=== PATIENT | female | born 1980 | race Hispanic/Latino ===

== ENCOUNTER 2023-02-01 13:43 | Inpatient (IN) | payer MEDICAID, SELFPAY ==
[2023-02-01] MEDS: Betamet Acet/Betamet Na Ph 30 MG/5 ML VIAL ONE (15:14)
[2023-02-01] MEDS ORDERED: Tranexamic Acid 1,000 MG/10 ML VIAL IVP PRN (18:16)
[2023-02-01] MEDS ORDERED: Misoprostol 200 MCG TAB PR PRN (18:16)
[2023-02-01] MEDS ORDERED: Acetaminophen 500 MG TAB PO PRN (18:16)
[2023-02-01] MEDS ORDERED: Promethazine HCl 25 MG/ML VIAL IM PRN (18:16)
[2023-02-01] MEDS ORDERED: Methylergonovine 0.2 MG/ML VIAL IM PRN (18:16)
[2023-02-01] MEDS ORDERED: Carboprost 250 MCG/ML AMP IM PRN (18:16)
[2023-02-01] MEDS ORDERED: hydrALAZINE 20 MG/ML VIAL SLOW IVP PRN (18:16)
[2023-02-01] MEDS ORDERED: Diphenoxylate HCl/Atropine Tablet PO PRN (18:16)
[2023-02-01] MEDS ORDERED: Ondansetron PF 4 MG/2 ML Vial IVP PRN (18:16)
[2023-02-01] MEDS ORDERED: Oxytocin 30 units/NS 500 ML 500 ML IV SCH (18:30)
[2023-02-01 19:09] VITALS: BMI 35.2
[2023-02-01 22:54] LABS: Hematocrit 37.8 % (34.9-44.5); Hemoglobin 12.8 g/dL (12.0-15.5); Mean Corpuscular HGB CONC 33.9 g/dL (32.0-36.0); Mean Corpuscular Hemoglobin 30.2 pg (27.0-33.0); Mean Corpuscular Volume 89.2 fl (81.6-98.3); Mean Platelet Volume 9.9 fl (7.4-10.4); Platelet Count 291 10x3/uL (150-450); RBC Distribution Width 15.4 % (11.5-14.5); Red Blood Cell (RBC) Count 4.24 10x6/uL (3.90-5.03); White Blood Cell (WBC) Count 9.7 10x3/uL (3.5-10.5)
[2023-02-02 02:17] LABS: HBSAg Index 0.16 S/CO (0-0.99); Hep B Surf Ag - L&D Non-Reactive S/CO (NonReactive); Syphilis Antibody Nonreactive (Nonreactive); Syphilis Antibody Index 0.07 S/CO (<1.00 Non-Reactive)
[2023-02-02] MEDS: Betamet Acet/Betamet Na Ph 30 MG/5 ML VIAL ONE (19:05)
[2023-02-03] MEDS ORDERED: Glucagon 1 MG/ML KIT IM PRN (10:35)
[2023-02-03] MEDS ORDERED: HumaLOG 300 UNITS/3 ML VIAL SC PRN ×2 (10:35→22:15)
[2023-02-03] MEDS ORDERED: Dextrose 5% in Water 1,000 ML IV PRN (10:35)
[2023-02-03] MEDS ORDERED: Dextrose 50% Abboject 50 ML SYRINGE SLOW IVP PRN (10:35)
[2023-02-03] MEDS ORDERED: HumaLOG 300 UNITS/3 ML VIAL SC SCH (10:45)
[2023-02-03] MEDS: Lactated Ringer's 1,000 ML IV SCH (17:26)
[2023-02-04] MEDS: Lactated Ringer's 1,000 ML IV SCH ×3 (08:06→13:12)
[2023-02-06 04:57] LABS: Hematocrit 37.2 % (34.9-44.5); Hemoglobin 12.8 g/dL (12.0-15.5); Mean Corpuscular HGB CONC 34.4 g/dL (32.0-36.0); Mean Corpuscular Hemoglobin 31.1 pg (27.0-33.0); Mean Corpuscular Volume 90.3 fl (81.6-98.3); Mean Platelet Volume 10.3 fl (7.4-10.4); Platelet Count 288 10x3/uL (150-450); RBC Distribution Width 15.7 % (11.5-14.5); Red Blood Cell (RBC) Count 4.12 10x6/uL (3.90-5.03); White Blood Cell (WBC) Count 8.6 10x3/uL (3.5-10.5)
[2023-02-07] MEDS: Milk Of Magnesia 30 ML UDCUP PO SCH (21:00)
[2023-02-08] MEDS: Lactated Ringer's 1,000 ML IV SCH ×4 (00:02→19:18)
[2023-02-08] MEDS ORDERED: Milk Of Magnesia 30 ML UDCUP PO SCH (09:45)
[2023-02-08 18:32] LABS: Hematocrit 41.5 % (34.9-44.5); Hemoglobin 13.8 g/dL (12.0-15.5); Mean Corpuscular HGB CONC 33.3 g/dL (32.0-36.0); Mean Corpuscular Hemoglobin 30.4 pg (27.0-33.0); Mean Corpuscular Volume 91.4 fl (81.6-98.3); Mean Platelet Volume 10.1 fl (7.4-10.4); Platelet Count 309 10x3/uL (150-450); RBC Distribution Width 16.1 % (11.5-14.5); Red Blood Cell (RBC) Count 4.54 10x6/uL (3.90-5.03); White Blood Cell (WBC) Count 10.2 10x3/uL (3.5-10.5)
[2023-02-08] MEDS: Milk Of Magnesia 30 ML UDCUP PO SCH (20:11)
[2023-02-09] MEDS ORDERED: Azithromycin 500 MG VIAL ONE (07:11)
[2023-02-09] MEDS ORDERED: CEFAZOLIN 2 GM VIAL ONE (07:11)
[2023-02-09] MEDS ORDERED: Milk Of Magnesia 30 ML UDCUP PO SCH (09:00)
[2023-02-09] MEDS ORDERED: Morphine PF 10 MG/10 ML VIAL ONE (09:38)
[2023-02-09] MEDS ORDERED: Phenylephrine 40 MG/NS 250 ML 250 ML ONE (10:11)
[2023-02-09] MEDS ORDERED: Dexamethasone 4 mg/ml Vial ONE (10:11)
[2023-02-09] MEDS ORDERED: Oxytocin 10 UNITS/ML VIAL ONE ×2 (10:11→10:26)
[2023-02-09] MEDS ORDERED: Ondansetron PF 4 MG/2 ML Vial ONE (10:11)
[2023-02-09] MEDS ORDERED: Ketorolac Tromethamine 30 MG/ML VIAL ONE (10:24)
[2023-02-09] MEDS ORDERED: Phytonadione Neonatal 1 MG/0.5 ML AMP ONE (10:27)
[2023-02-09] MEDS ORDERED: Erythromycin Base 0.5% Oint 1 GM TUBE ONE (10:27)
[2023-02-09] MEDS ORDERED: Meperidine HCl/PF 25 MG/ML VIAL IM PRN (13:09)
[2023-02-09] MEDS ORDERED: Ondansetron PF 4 MG/2 ML Vial IVP PRN (13:09)
[2023-02-09] MEDS ORDERED: Simethicone Chewable 80 MG TAB PO PRN (13:09)
[2023-02-09] MEDS ORDERED: Promethazine HCl 25 MG/ML VIAL IM PRN (13:09)
[2023-02-09] MEDS ORDERED: Lanolin Ointment 7 GM TUBE TOP PRN (13:09)
[2023-02-09] MEDS ORDERED: diphenhydrAMINE 25 MG CAP PO PRN (13:09)
[2023-02-09] MEDS ORDERED: HYDROcodone/Acetaminophen 5/325 mg Tablet PO PRN (13:09)
[2023-02-09] MEDS ORDERED: hydrALAZINE 20 MG/ML VIAL SLOW IVP PRN (13:09)
[2023-02-09] MEDS ORDERED: Bisacodyl 10 MG SUPP PR PRN (13:09)
[2023-02-09] MEDS ORDERED: Boostrix 0.5 ML (Tdap) VIAL (>/=7 yrs of age) IM ONE (16:00)
[2023-02-09] MEDS: Ketorolac Tromethamine 30 MG/ML VIAL IVP SCH (16:17)
[2023-02-09] MEDS: Docusate 100 MG CAP PO SCH (21:56)
[2023-02-09] MEDS: Ferrous Sulfate 325 MG TAB PO SCH (21:56)
[2023-02-10] MEDS: Ketorolac Tromethamine 30 MG/ML VIAL IVP SCH ×2 (04:32→04:39)
[2023-02-10 05:18] LABS: Hematocrit 36.2 % (34.9-44.5); Hemoglobin 12.5 g/dL (12.0-15.5); Mean Corpuscular HGB CONC 34.5 g/dL (32.0-36.0); Mean Corpuscular Volume 89.8 fl (81.6-98.3); Mean Platelet Volume 9.9 fl (7.4-10.4); Platelet Count 227 10x3/uL (150-450); RBC Distribution Width 15.2 % (11.5-14.5); Red Blood Cell (RBC) Count 4.03 10x6/uL (3.90-5.03); White Blood Cell (WBC) Count 11.4 10x3/uL (3.5-10.5)
[2023-02-10] MEDS: Prenatal Vitamin 1 TAB PO SCH (09:19)
[2023-02-10] MEDS: Docusate 100 MG CAP PO SCH ×2 (09:19→22:01)
[2023-02-10] MEDS: Ferrous Sulfate 325 MG TAB PO SCH ×2 (09:21→19:22)
[2023-02-10] MEDS: Ibuprofen 800 MG TAB PO SCH ×2 (14:07→22:02)
[2023-02-10] MEDS: HYDROcodone/Acetaminophen 5/325 mg Tablet PO PRN (19:44)
[2023-02-11] MEDS: Ibuprofen 800 MG TAB PO SCH ×3 (05:34→21:52)
[2023-02-11] MEDS: Prenatal Vitamin 1 TAB PO SCH (09:26)
[2023-02-11] MEDS: Docusate 100 MG CAP PO SCH ×2 (09:26→21:52)
[2023-02-11] MEDS: Ferrous Sulfate 325 MG TAB PO SCH ×2 (09:26→19:34)
[2023-02-11] MEDS: HYDROcodone/Acetaminophen 5/325 mg Tablet PO PRN (10:34)
[2023-02-11] MEDS: Lactated Ringer's 1,000 ML IV SCH ×3 (14:26→14:28)
[2023-02-11] MEDS: Milk Of Magnesia 30 ML UDCUP PO SCH (14:28)
[2023-02-12] MEDS: Ibuprofen 800 MG TAB PO SCH (06:01)
[2023-02-12] MEDS: Docusate 100 MG CAP PO SCH (07:42)
[2023-02-12] MEDS: Prenatal Vitamin 1 TAB PO SCH (07:42)
[2023-02-12] MEDS: Ferrous Sulfate 325 MG TAB PO SCH (07:42)
[2023-02-12 08:47] VITALS: BP 119/72; TEMP 98.1
[2023-02-12] MEDS: HYDROcodone/Acetaminophen 5/325 mg Tablet PO PRN (12:47)
== END 2023-02-12 14:25 | disposition home or self-care (01) | DRG 787 ==
LOC: CSHLAB 13:43 → CSHLD 19:05 → CSHPP 02-09 13:40
PROVIDERS: ADMIT Family Medicine; ATTEND Family Medicine
PROC: 10D00Z1 Extraction of Products of Conception, Low, Open Approach (ICD-10-PCS; principal; 2023-02-09)
DX: O36.5930 Maternal care for other known or suspected poor fetal growth, third trimester, not applicable or unspecified (principal); O41.03X0 Oligohydramnios, third trimester, not applicable or unspecified; O24.419 Gestational diabetes mellitus in pregnancy, unspecified control; Z37.0 Single live birth; Z3A.33 33 weeks gestation of pregnancy
CPT/HCPCS: 36415; 36416; 51702; 76815; 76819; 85027; 86780; 86850; 86900; 86901; 86922; 87340; 88307; J0456; J0702; J1100; J1815; J1885; J2274; J2405; J2590